=== PATIENT | female | born 1980 | race Two or more races ===

== ENCOUNTER 2021-04-03 22:25 | Inpatient (IN) | payer MEDICAID, OTHER ==
[~2021-04-03] VITALS: Ht 157.5 cm; Wt 76.1 kg
[2021-04-03] MEDS ORDERED: ALBUTEROL SULF 2.5 MG/0.5ML(0.5%) NEB SOLN NEB ONE (22:30)
[2021-04-03] MEDS ORDERED: methylPREDNISolone SOD SUCC 125 MG/2 ML VL IM ONE (22:30)
[2021-04-03] MEDS ORDERED: IPRATROPIUM BROM 0.5 MG/2.5ML INH SOL NEB ONE (22:30)
[2021-04-04] MEDS ORDERED: ALPRAZolam 0.25 MG TAB PO ONE
[2021-04-04] MEDS ORDERED: SODIUM CHLORIDE 0.9% 1,000 ML IV ONE ×2 (01:15)
[2021-04-04] MEDS ORDERED: guaiFENesin-CODEINE Liq 5 ML UD PO ONE (01:15)
[2021-04-04] MEDS: MAGNESIUM SULFATE 1GM/100ML 100 ML IV SCH ×2 (02:00→02:15)
[2021-04-04 02:12] LABS: Basophils # (auto) 0 10 ^3/uL (0-0.2); Basophils % (auto) 0.2 % (0.0-2.0); Eosinophils # (auto) 0.1 10 ^3/uL (0-0.8); Monocytes # (auto) 0.3 10 ^3/uL (0-1.3)
[2021-04-04 02:16] LABS: Eosinophils % (auto) 0.7 % (0.0-7.0); Hematocrit 37.4 % (36.0-46.0); Lymphocytes # (auto) 0.7 10 ^3/uL (0.4-5.4); Lymphocytes % (auto) 3.8 % (10.0-50.0); Mean Corpuscular Hemoglobin 23.7 pg (28.0-32.0); Mean Corpuscular Hgb Conc. 32.2 g/dL (32.0-36.0); Mean Corpuscular Volume 73.4 fL (80.0-100.0); Monocytes % (auto) 1.7 % (0.0-12.0); Neutrophils % (auto) 93.6 % (37.0-80.0); Red Blood Cells 5.09 10^6/uL (4.0-5.20); Red Cell Distribution Width 16.7 % (11.8-14.3); White Blood Cell 18.1 10^3/uL (4.4-10.8)
[2021-04-04 02:42] LABS: Albumin 3.7 g/dL (3.4-5.0); Calcium 8.9 mg/dL (8.5-10.1)
[2021-04-04 02:45] LABS: BUN/Creatinine Ratio 20.8
[2021-04-04 02:47] LABS: Bilirubin, Total 0.4 mg/dL (0.2-1.0); Total Protein 8.3 g/dL (6.4-8.2)
[2021-04-04] MEDS ORDERED: AZITHROMYCIN 500MG/ 250ML 250 ML IV ONE (03:00)
[2021-04-04] MEDS ORDERED: cefTRIAXone 1GM/50ML D5W 50 ML IV ONE (03:00)
[2021-04-04] MEDS ORDERED: IPRATROPIUM BROM 0.5 MG/2.5ML INH SOL NEB PRN (05:15)
[2021-04-04] MEDS ORDERED: LORazepam 2MG/ML-1ML VIAL IV PRN (05:15)
[2021-04-04] MEDS ORDERED: ONDANSETRON HCL 4 MG/2 ML VIAL IV PRN (05:15)
[2021-04-04] MEDS ORDERED: MORPHINE SULFATE 4 MG/ML SYR/VIAL IV PRN ×2 (05:15→13:00)
[2021-04-04] MEDS ORDERED: ALBUTEROL SULF 2.5 MG/0.5ML(0.5%) NEB SOLN NEB PRN (05:15)
[2021-04-04] MEDS ORDERED: DOCUSATE SOD 100 MG CAP PO PRN (05:15)
[2021-04-04] MEDS ORDERED: ACETAMINOPHEN 325 MG TAB PO PRN (05:15)
[2021-04-04] MEDS: SODIUM CHLOR 0.9% PF (SALINE LOCK) 10ML VIAL/SYR IV SCH ×3 (06:00→21:48)
[2021-04-04] MEDS ORDERED: NITROGLYCERIN 0.4 MG SL TAB SL PRN (06:30)
[2021-04-04] MEDS ORDERED: MORPHINE SULFATE INJECTION 2 MG/ML SYRG IV PRN (06:30)
[2021-04-04 07:13] LABS: Basophils # (auto) 0 10 ^3/uL (0-0.2); Eosinophils # (auto) 0 10 ^3/uL (0-0.8); Lymphocytes # (auto) 0.9 10 ^3/uL (0.4-5.4); Monocytes # (auto) 0.1 10 ^3/uL (0-1.3)
[2021-04-04 07:15] LABS: Basophils % (auto) 0.1 % (0.0-2.0); Hematocrit 33.5 % (36.0-46.0); Hemoglobin 10.7 g/dL (12.2-16.2); Mean Corpuscular Hemoglobin 23.3 pg (28.0-32.0); Mean Corpuscular Hgb Conc. 31.9 g/dL (32.0-36.0); Mean Corpuscular Volume 72.9 fL (80.0-100.0); Monocytes % (auto) 0.8 % (0.0-12.0); Neutrophils # (auto) 14.2 10 ^3/uL (1.6-8.6); Neutrophils % (auto) 93.1 % (37.0-80.0); Red Cell Distribution Width 16.8 % (11.8-14.3); White Blood Cell 15.3 10^3/uL (4.4-10.8)
[2021-04-04 07:28] LABS: Albumin 3.1 g/dL (3.4-5.0); Potassium 4.3 mmol/L (3.5-5.1)
[2021-04-04 07:32] LABS: BUN/Creatinine Ratio 20.3; Bilirubin, Total 0.4 mg/dL (0.2-1.0); Total Protein 7.3 g/dL (6.4-8.2)
[2021-04-04 08:10] VITALS: BP 120/72
[2021-04-04 09:00] VITALS: BP 119/68
[2021-04-04] MEDS ORDERED: ALBU108A5 INH (09:23)
[2021-04-04] MEDS ORDERED: ENOXAPARIN SOD 40 MG/0.4 ML SYRINGE SC SCH (10:00)
[2021-04-04] MEDS ORDERED: methylPREDNISolone SOD SUCC 40 MG/ML VL IV SCH ×3 (10:00→13:30)
[2021-04-04] MEDS ORDERED: ASCORBIC ACID 500 MG TAB PO SCH (10:00)
[2021-04-04] MEDS: cefTRIAXone 1GM/50ML D5W 50 ML IV SCH (10:37)
[2021-04-04] MEDS: FAMOTIDINE (10MG/ML) 2ML VL IV SCH ×2 (10:38→21:48)
[2021-04-04] MEDS: ZINC SULFATE 220mg CAP or TAB PO SCH (10:38)
[2021-04-04] MEDS: MULTIPLE VITAMIN TAB PO SCH (10:38)
[2021-04-04] MEDS: AZITHROMYCIN 500MG/ 250ML 250 ML IV SCH (11:38)
[2021-04-04] MEDS: guaiFENesin-DM 100/10mg/5ml SYR PO PRN ×2 (11:58→22:49)
[2021-04-04 13:00] VITALS: BP 111/68
[2021-04-04] MEDS ORDERED: ALBUTEROL SULF 2.5 MG/0.5ML(0.5%) NEB SOLN ONE (13:09)
[2021-04-04] MEDS ORDERED: IPRATROPIUM BROM 0.5 MG/2.5ML INH SOL ONE (13:10)
[2021-04-04 17:00] VITALS: BP 112/68
[2021-04-04] MEDS: methylPREDNISolone SOD SUCC 40 MG/ML VL IV SCH (17:37)
[2021-04-04 22:00] VITALS: BP 120/65
[2021-04-05] MEDS: methylPREDNISolone SOD SUCC 40 MG/ML VL IV SCH ×3 (02:42→17:40)
[2021-04-05 05:13] VITALS: BP 118/74
[2021-04-05] MEDS: SODIUM CHLOR 0.9% PF (SALINE LOCK) 10ML VIAL/SYR IV SCH ×3 (05:52→21:29)
[2021-04-05 06:09] LABS: Basophils # (auto) 0.1 10 ^3/uL (0-0.2); Eosinophils # (auto) 0 10 ^3/uL (0-0.8); Hemoglobin 10.5 g/dL (12.2-16.2); Mean Corpuscular Volume 73.3 fL (80.0-100.0); Monocytes # (auto) 0.8 10 ^3/uL (0-1.3); Neutrophils # (auto) 20.6 10 ^3/uL (1.6-8.6); Red Cell Distribution Width 16.8 % (11.8-14.3); White Blood Cell 22.5 10^3/uL (4.4-10.8)
[2021-04-05 06:11] LABS: Calcium 8.5 mg/dL (8.5-10.1); Potassium 4.3 mmol/L (3.5-5.1)
[2021-04-05 06:12] LABS: Basophils % (auto) 0.3 % (0.0-2.0); Hematocrit 33.3 % (36.0-46.0); Lymphocytes % (auto) 4.4 % (10.0-50.0); Mean Corpuscular Hemoglobin 23.2 pg (28.0-32.0); Mean Corpuscular Hgb Conc. 31.6 g/dL (32.0-36.0); Monocytes % (auto) 3.6 % (0.0-12.0); Neutrophils % (auto) 91.7 % (37.0-80.0); Red Blood Cells 4.55 10^6/uL (4.0-5.20)
[2021-04-05 06:14] LABS: BUN/Creatinine Ratio 26.8; Magnesium 2.7 mg/dL (1.6-2.6)
[2021-04-05 06:17] LABS: Bilirubin, Total 0.2 mg/dL (0.2-1.0)
[2021-04-05] MEDS: HYDROcodone-ACET 5/325MG TAB PO PRN (06:20)
[2021-04-05] MEDS: guaiFENesin-DM 100/10mg/5ml SYR PO PRN (06:20)
[2021-04-05] MEDS: ALBUTEROL SULF 2.5 MG/0.5ML(0.5%) NEB SOLN NEB SCH ×5 (06:45→21:42)
[2021-04-05] MEDS: IPRATROPIUM BROM 0.5 MG/2.5ML INH SOL NEB SCH ×5 (06:45→21:42)
[2021-04-05 08:42] VITALS: BP 111/61
[2021-04-05] MEDS: cefTRIAXone 1GM/50ML D5W 50 ML IV SCH (08:48)
[2021-04-05] MEDS: MULTIPLE VITAMIN TAB PO SCH (09:56)
[2021-04-05] MEDS: AZITHROMYCIN 500MG/ 250ML 250 ML IV SCH (09:56)
[2021-04-05] MEDS: FAMOTIDINE (10MG/ML) 2ML VL IV SCH ×2 (09:56→21:18)
[2021-04-05] MEDS: ZINC SULFATE 220mg CAP or TAB PO SCH (09:56)
[2021-04-05 12:44] VITALS: BP 99/58
[2021-04-05 16:43] VITALS: BP 106/62
[2021-04-05] MEDS: BUDESONIDE (INHALATION) 0.5 MG/2 ML NEB NEB SCH (21:42)
[2021-04-05 22:00] VITALS: BP 103/55
[2021-04-06] MEDS: methylPREDNISolone SOD SUCC 40 MG/ML VL IV SCH ×3 (02:16→17:59)
[2021-04-06] MEDS: guaiFENesin-DM 100/10mg/5ml SYR PO PRN (03:04)
[2021-04-06] MEDS: HYDROcodone-ACET 5/325MG TAB PO PRN (03:04)
[2021-04-06 05:00] VITALS: BP 110/72
[2021-04-06] MEDS: SODIUM CHLOR 0.9% PF (SALINE LOCK) 10ML VIAL/SYR IV SCH ×3 (05:58→21:30)
[2021-04-06 06:00] LABS: Basophils # (auto) 0 10 ^3/uL (0-0.2); Eosinophils # (auto) 0 10 ^3/uL (0-0.8)
[2021-04-06 06:01] LABS: Hematocrit 31.9 % (36.0-46.0); Hemoglobin 10.3 g/dL (12.2-16.2); Lymphocytes # (auto) 0.9 10 ^3/uL (0.4-5.4); Lymphocytes % (auto) 5.5 % (10.0-50.0); Mean Corpuscular Hemoglobin 23.2 pg (28.0-32.0); Mean Corpuscular Hgb Conc. 32.1 g/dL (32.0-36.0); Mean Corpuscular Volume 72.2 fL (80.0-100.0); Monocytes # (auto) 0.6 10 ^3/uL (0-1.3); Monocytes % (auto) 3.7 % (0.0-12.0); Neutrophils # (auto) 15.4 10 ^3/uL (1.6-8.6); Neutrophils % (auto) 90.8 % (37.0-80.0); Red Blood Cells 4.42 10^6/uL (4.0-5.20); Red Cell Distribution Width 17.1 % (11.8-14.3)
[2021-04-06 06:32] LABS: Albumin 2.8 g/dL (3.4-5.0); BUN/Creatinine Ratio 26.6; Calcium 7.9 mg/dL (8.5-10.1); Potassium 4.4 mmol/L (3.5-5.1)
[2021-04-06 06:35] LABS: Bilirubin, Total 0.2 mg/dL (0.2-1.0); Total Protein 6.7 g/dL (6.4-8.2)
[2021-04-06] MEDS: BUDESONIDE (INHALATION) 0.5 MG/2 ML NEB NEB SCH ×2 (06:58→18:32)
[2021-04-06] MEDS: ALBUTEROL SULF 2.5 MG/0.5ML(0.5%) NEB SOLN NEB SCH ×5 (06:58→21:23)
[2021-04-06] MEDS: IPRATROPIUM BROM 0.5 MG/2.5ML INH SOL NEB SCH ×5 (06:58→21:23)
[2021-04-06 08:40] VITALS: BP 109/64
[2021-04-06] MEDS: FAMOTIDINE (10MG/ML) 2ML VL IV SCH (10:22)
[2021-04-06] MEDS: cefTRIAXone 1GM/50ML D5W 50 ML IV SCH (10:22)
[2021-04-06] MEDS: ZINC SULFATE 220mg CAP or TAB PO SCH (10:23)
[2021-04-06] MEDS: MULTIPLE VITAMIN TAB PO SCH (10:23)
[2021-04-06 12:59] VITALS: BP 105/60
[2021-04-06 16:37] VITALS: BP 105/60
[2021-04-06 17:00] VITALS: BP 115/62
[2021-04-06] MEDS: PROMETHAZINE W/CODEINE 5 ML ORAL SYRUP PO PRN ×2 (18:00→22:32)
[2021-04-06 22:00] VITALS: BP 108/59
[2021-04-07] MEDS: methylPREDNISolone SOD SUCC 40 MG/ML VL IV SCH ×2 (02:00→10:31)
[2021-04-07 05:00] VITALS: BP 116/66
[2021-04-07] MEDS: SODIUM CHLOR 0.9% PF (SALINE LOCK) 10ML VIAL/SYR IV SCH (05:26)
[2021-04-07] MEDS: IPRATROPIUM BROM 0.5 MG/2.5ML INH SOL NEB SCH ×2 (07:04→10:21)
[2021-04-07] MEDS: ALBUTEROL SULF 2.5 MG/0.5ML(0.5%) NEB SOLN NEB SCH ×2 (07:04→10:21)
[2021-04-07 09:00] VITALS: BP 108/59
[2021-04-07] MEDS ORDERED: AZITHROMYCIN 250 MG TAB PO SCH (10:00)
[2021-04-07] MEDS ORDERED: FAMOTIDINE 20 MG TAB PO SCH (10:00)
[2021-04-07] MEDS: cefTRIAXone 1GM/50ML D5W 50 ML IV SCH (10:30)
[2021-04-07] MEDS: MULTIPLE VITAMIN TAB PO SCH (10:31)
[2021-04-07] MEDS: BUDESONIDE (INHALATION) 0.5 MG/2 ML NEB NEB SCH (11:35)
== END 2021-04-07 15:00 | disposition home or self-care (01) | DRG 720 ==
LOC: ER 22:25 → OVERFLOW 04-04 06:18 → WEST WING 04-04 08:11
PROVIDERS: ADMIT Nurse Practitioner Family; ATTEND Internal Medicine
DX: A41.9 Sepsis, unspecified organism (principal); J96.01 Acute respiratory failure with hypoxia; J18.9 Pneumonia, unspecified organism; J45.901 Unspecified asthma with (acute) exacerbation; D72.829 Elevated white blood cell count, unspecified; D75.839 Thrombocytosis, unspecified; E66.9 Obesity, unspecified; F17.210 Nicotine dependence, cigarettes, uncomplicated; F15.10 Other stimulant abuse, uncomplicated; Z20.822 Contact with and (suspected) exposure to COVID-19; R00.0 Tachycardia, unspecified; Z82.49 Family history of ischemic heart disease and other diseases of the circulatory system; Z68.31 Body mass index [BMI] 31.0-31.9, adult
CPT/HCPCS: 36415; 71045; 80053; 83605; 83735; 84702; 85025; 87426; 87804; 94640; 96360; 96372; G0378; J0696; J3490

== ENCOUNTER 2022-02-10 16:09 | Emergency (ER) | payer MEDICAID ==
[~2022-02-10] VITALS: Ht 157.5 cm; Wt 52.7 kg
[~2022-02-10 16:09] MED LIST: ALBU108A5 INH
[2022-02-10 16:27] VITALS: BP 118/67
[2022-02-10] MEDS ORDERED: LIDOCAINE 1% HCL (LOCAL ANESTH.) INJ 20ML MDV IJ ONE (16:45)
[2022-02-10] MEDS ORDERED: methylPREDNISolone SOD SUCC 125 MG/2 ML VL IM ONE (16:45)
[2022-02-10] MEDS ORDERED: ALBUTEROL SULF 2.5 MG/0.5ML(0.5%) NEB SOLN NEB ONE (16:45)
[2022-02-10] MEDS ORDERED: IPRATROPIUM BROM 0.5 MG/2.5ML INH SOL NEB ONE (16:45)
[2022-02-10] MEDS ORDERED: cefTRIAXone SOD 1,000 MG VL IM ONE (16:45)
[2022-02-10] MEDS ORDERED: ACETAMINOPHEN 325 MG TAB PO ONE (17:00)
[2022-02-10] MEDS ORDERED: PROM1SOL4 PO ×2 (17:28→17:32)
[2022-02-10] MEDS ORDERED: PRED20TA2 PO ×2 (17:28→17:32)
[2022-02-10] MEDS ORDERED: ALBU108A5 IN ×2 (17:28→17:32)
== END 2022-02-10 17:33 | disposition home or self-care (01) ==
LOC: ER 16:09
DX: J45.909 Unspecified asthma, uncomplicated (principal); F17.210 Nicotine dependence, cigarettes, uncomplicated; F15.10 Other stimulant abuse, uncomplicated
CPT/HCPCS: 71046; 93005; 94640; 96372; 99284; J0696; J2001; J2930; J7644

== ENCOUNTER 2022-03-15 19:52 | Emergency (ER) | payer MEDICAID ==
[~2022-03-15] VITALS: Ht 157.5 cm; Wt 68.2 kg
[~2022-03-15 19:52] MED LIST changes: +ALBU108A5 IN; +PRED20TA2 PO; +PROM1SOL4 PO
[2022-03-15] MEDS ORDERED: methylPREDNISolone SOD SUCC 125 MG/2 ML VL IM ONE (21:15)
[2022-03-15] MEDS ORDERED: IPRATROPIUM BROM 0.5 MG/2.5ML INH SOL NEB ONE (21:15)
[2022-03-15] MEDS ORDERED: ALBUTEROL SULF 2.5 MG/0.5ML(0.5%) NEB SOLN NEB ONE (21:15)
[2022-03-15 21:28] LABS: Basophils # (auto) 0 10 ^3/uL (0-0.2); Basophils % (auto) 0.3 % (0.0-2.0); Eosinophils # (auto) 0.9 10 ^3/uL (0-0.8); Eosinophils % (auto) 7.2 % (0.0-7.0); Hematocrit 35.1 % (36.0-46.0); Lymphocytes # (auto) 2.7 10 ^3/uL (0.4-5.4); Lymphocytes % (auto) 22.2 % (10.0-50.0); Mean Corpuscular Hemoglobin 22.5 pg (28.0-32.0); Mean Corpuscular Hgb Conc. 31.2 g/dL (32.0-36.0); Mean Corpuscular Volume 72.2 fL (80.0-100.0); Monocytes # (auto) 0.7 10 ^3/uL (0-1.3); Monocytes % (auto) 5.4 % (0.0-12.0); Neutrophils # (auto) 7.9 10 ^3/uL (1.6-8.6); Neutrophils % (auto) 64.9 % (37.0-80.0); Red Blood Cells 4.86 10^6/uL (4.0-5.20); Red Cell Distribution Width 17.6 % (11.8-14.3); White Blood Cell 12.1 10^3/uL (4.4-10.8)
[2022-03-15 21:49] LABS: Albumin 3.4 g/dL (3.4-5.0); Calcium 8.5 mg/dL (8.5-10.1); Potassium 3.8 mmol/L (3.5-5.1)
[2022-03-15 21:52] LABS: Bilirubin, Total 0.2 mg/dL (0.2-1.0); Total Protein 7.4 g/dL (6.4-8.2)
[2022-03-15] MEDS ORDERED: AZITTAB PO (23:17)
[2022-03-15] MEDS ORDERED: BENZ100C19 PO (23:17)
[2022-03-15] MEDS ORDERED: MONT-8 PO (23:17)
[2022-03-15] MEDS ORDERED: ALBU108A5 IN (23:17)
[2022-03-15] MEDS ORDERED: PRED20TA2 PO (23:17)
[2022-03-16 01:03] VITALS: BP 139/87
== END 2022-03-16 01:03 | disposition home or self-care (01) ==
LOC: ER 19:53
DX: J45.909 Unspecified asthma, uncomplicated (principal); J20.9 Acute bronchitis, unspecified; F17.210 Nicotine dependence, cigarettes, uncomplicated
CPT/HCPCS: 36415; 71045; 80053; 84484; 85025; 93005; 94640; 96372; 99285; J2930; J7644

== ENCOUNTER 2022-03-19 15:38 | Emergency (ER) | payer MEDICAID ==
[~2022-03-19] VITALS: Ht 157.5 cm; Wt 68.0 kg
[~2022-03-19 15:38] MED LIST changes: +AZITTAB PO; +BENZ100C19 PO; +MONT-8 PO
[2022-03-19] MEDS ORDERED: methylPREDNISolone SOD SUCC 125 MG/2 ML VL IM ONE (16:15)
[2022-03-19] MEDS ORDERED: IPRATROPIUM BROM 0.5 MG/2.5ML INH SOL HHN ONE (16:15)
[2022-03-19] MEDS ORDERED: ALBUTEROL SULF 2.5 MG/0.5ML(0.5%) NEB SOLN HHN ONE (16:15)
[2022-03-19 17:18] VITALS: BP 103/69
== END 2022-03-19 21:37 | disposition left against medical advice (07) ==
LOC: ER 15:38
DX: J45.909 Unspecified asthma, uncomplicated (principal); R20.2 Paresthesia of skin; Z53.29 Procedure and treatment not carried out because of patient's decision for other reasons
CPT/HCPCS: 71046; 94644; 96372; 99285; J2930; J7644

== ENCOUNTER 2023-06-12 08:14 | Emergency (ER) | payer MEDICAID ==
[~2023-06-12] VITALS: Ht 157.5 cm; Wt 70.3 kg
[2023-06-12 08:31] VITALS: BP 125/72; PULSE 71; RESP 16; TEMP 97.6; O2SAT 100
[2023-06-12] MEDS ORDERED: KETOROLAC TROMETH 60MG/2ML VIAL IM ONE (09:15)
[2023-06-12] MEDS ORDERED: TRAM50TA2 PO (09:42)
[2023-06-12] MEDS ORDERED: ACET500T58 PO (09:42)
== END 2023-06-12 09:43 | disposition home or self-care (01) ==
LOC: ER 08:14
DX: H61.891 Other specified disorders of right external ear (principal); J45.909 Unspecified asthma, uncomplicated; F17.210 Nicotine dependence, cigarettes, uncomplicated; F15.10 Other stimulant abuse, uncomplicated; Z98.51 Tubal ligation status
CPT/HCPCS: 96372; 99283; J1885

== ENCOUNTER 2023-08-24 08:19 | Emergency (ER) | payer MEDICAID ==
[~2023-08-24] VITALS: Ht 157.5 cm; Wt 71.5 kg
[~2023-08-24 08:19] MED LIST changes: +ACET500T58 PO; +TRAM50TA2 PO
[2023-08-24 08:42] VITALS: BP 115/84; PULSE 94; RESP 18; TEMP 98.7; O2SAT 98
[2023-08-24] MEDS: methylPREDNISolone SOD SUCC 125 MG/2 ML VL IM ONE (09:26)
[2023-08-24] MEDS ORDERED: FLUT1SPR5 (09:27)
[2023-08-24] MEDS ORDERED: ALBU108A5 IN (09:27)
[2023-08-24] MEDS ORDERED: PRED20TA2 PO (09:27)
== END 2023-08-24 09:39 | disposition home or self-care (01) ==
LOC: ER 08:19
DX: J45.909 Unspecified asthma, uncomplicated (principal); F17.210 Nicotine dependence, cigarettes, uncomplicated; F15.10 Other stimulant abuse, uncomplicated; Z98.51 Tubal ligation status
CPT/HCPCS: 96372; 99283; J2930

== ENCOUNTER 2023-11-05 12:56 | Emergency (ER) | payer MEDICAID ==
[~2023-11-05] VITALS: Ht 157.5 cm; Wt 69.5 kg
[~2023-11-05 12:56] MED LIST changes: +FLUT1SPR5
[2023-11-05] MEDS: KETOROLAC TROMETH 60MG/2ML VIAL IM ONE (14:06)
[2023-11-05] MEDS ORDERED: METH-1182 PO (14:49)
[2023-11-05] MEDS ORDERED: IBUP-1454 PO (14:49)
[2023-11-05 14:52] VITALS: BP 136/88; PULSE 86; RESP 18; TEMP 98.2; O2SAT 98
== END 2023-11-05 14:55 | disposition home or self-care (01) ==
LOC: ER 12:56
DX: S39.012A Strain of muscle, fascia and tendon of lower back, initial encounter (principal); S76.912A Strain of unspecified muscles, fascia and tendons at thigh level, left thigh, initial encounter; J45.909 Unspecified asthma, uncomplicated; F17.210 Nicotine dependence, cigarettes, uncomplicated; F15.10 Other stimulant abuse, uncomplicated; Z98.51 Tubal ligation status; W01.0XXA Fall on same level from slipping, tripping and stumbling without subsequent striking against object, initial encounter; Y93.89 Activity, other specified; Y92.512 Supermarket, store or market as the place of occurrence of the external cause; Y99.8 Other external cause status
CPT/HCPCS: 72100; 96372; 99283; J1885

== ENCOUNTER 2023-11-13 15:35 | Emergency (ER) | payer MEDICAID ==
[~2023-11-13] VITALS: Ht 157.5 cm; Wt 71.9 kg
[~2023-11-13 15:35] MED LIST changes: +IBUP-1454 PO; +METH-1182 PO
[2023-11-13] MEDS: KETOROLAC TROMETH 30 MG/ML 1ML VIAL IM ONE (17:06)
[2023-11-13 17:07] VITALS: BP 128/80; PULSE 79; RESP 16; TEMP 98.2; O2SAT 98
== END 2023-11-13 18:25 | disposition home or self-care (01) ==
LOC: ER 15:35
DX: S39.012A Strain of muscle, fascia and tendon of lower back, initial encounter (principal); M54.6 Pain in thoracic spine; J45.909 Unspecified asthma, uncomplicated; F17.210 Nicotine dependence, cigarettes, uncomplicated; F15.10 Other stimulant abuse, uncomplicated; Z98.51 Tubal ligation status; Z79.899 Other long term (current) drug therapy; W18.30XA Fall on same level, unspecified, initial encounter; Y93.89 Activity, other specified; Y92.89 Other specified places as the place of occurrence of the external cause; Y99.8 Other external cause status
CPT/HCPCS: 72128; 72131; 96372; 99285; J1885